=== PATIENT | female | born 1995 | race Hispanic/Latino ===

== ENCOUNTER 2017-12-20 02:35 | Inpatient (IN) | payer SELFPAY ==
[~2017-12-20] VITALS: Ht 157.5 cm; Wt 98.9 kg
[2017-12-20 03:18] LABS: APPEARANCE,URINE Clear (CLEAR); BILIRUBIN,URINE Negative (NEGATIVE); COLOR,URINE Dark Yellow (YELLOW); GLUCOSE, URINE (UA) Negative (NEGATIVE); KETONES,URINE Trace mg/dL (NEGATIVE); LEUKOCYTE ESTERASE ,URINE Small (NEGATIVE); NITRATE,URINE Negative (NEGATIVE); OCCULT BLOOD,URINE Moderate (NEGATIVE); PH,URINE 5.5 (5.0-8.0); PROTEIN,URINE Trace (NEGATIVE)
[2017-12-20 03:26] LABS: AMPHET/METH SCREEN,URINE NEGATIVE (NEGATIVE); BARBITURATE SCREEN, URINE NEGATIVE (NEGATIVE); BENZODIAZEPINES SCREEN,URINE NEGATIVE (NEGATIVE); CANNABINOID SCREEN,URINE NEGATIVE (NEGATIVE); COCAINE SCREEN,URINE NEGATIVE (NEGATIVE); OPIATE SCREEN,URINE NEGATIVE (NEGATIVE); PHENCYCLIDINE SCREEN,URINE NEGATIVE (NEGATIVE)
[2017-12-20 03:33] LABS: AMORPHOUS SEDIMENT,UR Many /LPF (None Seen); BACTERIA,URINE Few /HPF (None Seen); MUCUS,URINE Many LPF (None Seen); SQUAMOUS EPITHELIAL CELL,UR Moderate /LPF (0-2)
[2017-12-20] MEDS ORDERED: LACTATED RINGERS 1000ML 1,000 ML IV PRN (03:58)
[2017-12-20] MEDS ORDERED: MEPERIDINE-PF 50 MG/ML SYG IVP ONE (04:00)
[2017-12-20] MEDS ORDERED: OXYTOCIN-LR 20 UNITS/1000 ML 1,000 ML IV SCH (04:00)
[2017-12-20] MEDS ORDERED: AMPICILLIN 2GM+NS 100ML 100 ML IV SCH (04:30)
[2017-12-20] MEDS ORDERED: AMPICILLIN 2GM+NS 100ML 100 ML IV ONE (04:32)
[2017-12-20 04:36] LABS: HEMATOCRIT 38.3 % (36-48); MEAN CORPUSCULAR HEMOGLOBIN 30.4 pg (27.0-33.0); MEAN CORPUSCULAR HGB CONC 34.3 g/dL (32.0-36.0); MEAN CORPUSCULAR VOLUME 88.7 fL (80-100); PLATELET COUNT (AUTO) 92 K/uL (130-400); RED BLOOD CELL COUNT(AUTO) 4.31 MIL/uL (4.00-5.50); RED CELL DISTRIBUTION WIDTH 13.6 % (11.0-15.5); WHITE BLOOD COUNT (AUTO) 18.9 K/uL (4.8-10.8)
[2017-12-20] MEDS: PROMETHAZINE HCL 25 MG/ML 1ML AMPULE IM SCH ×2 (04:36→23:46)
[2017-12-20 06:44] LABS: RAPID PLASMA REAGIN NONREACTIVE (NONREACTIVE)
[2017-12-20] MEDS ORDERED: MEPERIDINE-PF 50 MG/ML SYG IVP PRN (07:00)
[2017-12-20] MEDS ORDERED: OXYTOCIN 10 USP UNITS/ML ONE ×3 (07:08→15:27)
[2017-12-20] MEDS ORDERED: AMPICILLIN 1GM+NS 50ML 50 ML IV SCH (08:30)
[2017-12-20] MEDS ORDERED: CEFAZOLIN SODIUM 1 GM VIAL ONE (10:59)
[2017-12-20] MEDS ORDERED: EPHEDRINE-NS PF 50MG/5ML SYRINGE IV ONE (13:45)
[2017-12-20] MEDS ORDERED: LACTATED RINGERS 1000ML 1,000 ML IV SCH (13:45)
[2017-12-20] MEDS ORDERED: CEFAZOLIN SODIUM 1 GM VIAL IVP PRN (13:45)
[2017-12-20] MEDS ORDERED: FENTANYL CITRATE PF 50 MCG/1 ML 2ML VIAL ONE (13:45)
[2017-12-20] MEDS ORDERED: DURAMORPH PF1 MG/ML 10ML AMP IV ONE (13:49)
[2017-12-20] MEDS ORDERED: CEFAZOLIN SODIUM 1 GM VIAL IVP ONE (14:00)
[2017-12-20] MEDS ORDERED: GLYCOPYRROLATE 0.2 MG/ML 5 ML VIAL ONE (14:08)
[2017-12-20] MEDS ORDERED: DEXAMETHASONE SOD PHOSPHATE 10MG/ML 1ML VIAL ONE (14:19)
[2017-12-20] MEDS ORDERED: OXYTOCIN 10 UNIT/1ML 10ML VIAL ONE (14:19)
[2017-12-20] MEDS ORDERED: ONDANSETRON HCL 4 MG/2 ML VIAL ONE (14:19)
[2017-12-20 16:40] VITALS: BP 120/73
[2017-12-20] MEDS ORDERED: OXYTOCIN-LR 20 UNITS/1000 ML 1,000 ML IV PRN (17:12)
[2017-12-20] MEDS ORDERED: SODIUM CHLORIDE 0.9% 10 ML VIAL IVP PRN (17:15)
[2017-12-20] MEDS ORDERED: MEPERIDINE-PF 75 MG/ML SYG IM PRN (17:15)
[2017-12-20] MEDS ORDERED: PROMETHAZINE HCL 25 MG/ML 1ML AMPULE IM PRN ×2 (17:15→18:15)
[2017-12-20] MEDS ORDERED: PNV1TABL17 PO (17:27)
[2017-12-20] MEDS ORDERED: ONDANSETRON HCL 4 MG/2 ML VIAL IVP PRN ×2 (18:15)
[2017-12-20] MEDS ORDERED: EPHEDRINE SULFATE 50 MG/ML AMPULE IVP PRN (18:15)
[2017-12-20] MEDS ORDERED: HYDROCODONE/ACETAMINOPHEN 5/325 MG TAB PO PRN ×2 (18:15)
[2017-12-20] MEDS ORDERED: METOCLOPRAMIDE 10 MG/2 ML VIAL IVP PRN (18:15)
[2017-12-20] MEDS ORDERED: NALOXONE HCL 0.4 MG/1 ML ML IVP PRN (18:15)
[2017-12-20] MEDS ORDERED: MORPHINE SULFATE 2 MG/ML 1ML SYG IVP PRN (18:15)
[2017-12-20] MEDS ORDERED: ROPIVACAINE 0.2%200ML EPIDURAL 200 ML EP SCH (18:15)
[2017-12-20] MEDS ORDERED: ONDANSETRON HCL 4 MG/2 ML 8 MG in SODIUM CHLORIDE 0.9% 50 ML IVP NR (18:15)
[2017-12-20] MEDS ORDERED: DiphenhydrAMINE HCL 50 MG/ML VIAL IVP PRN (18:15)
[2017-12-20 19:22] VITALS: BP 101/47
[2017-12-20] MEDS: DEXTROSE 5 %-0.45 % NACL 1,000 ML IV PRN (22:55)
[2017-12-20 23:20] VITALS: BP 117/60
[2017-12-21 03:29] VITALS: BP 97/59
[2017-12-21 05:13] LABS: HEMATOCRIT 29.1 % (36-48); MEAN CORPUSCULAR HEMOGLOBIN 31.4 pg (27.0-33.0); MEAN CORPUSCULAR HGB CONC 35.3 g/dL (32.0-36.0); MEAN CORPUSCULAR VOLUME 88.8 fL (80-100); PLATELET COUNT (AUTO) 58 K/uL (130-400); RED BLOOD CELL COUNT(AUTO) 3.28 MIL/uL (4.00-5.50); RED CELL DISTRIBUTION WIDTH 13.4 % (11.0-15.5); WHITE BLOOD COUNT (AUTO) 22.3 K/uL (4.8-10.8)
[2017-12-21 05:30] LABS: PLATELET MORPHOLOGY COMMENT SLIGHTLY DECREASED
[2017-12-21] MEDS: DEXTROSE 5 %-0.45 % NACL 1,000 ML IV PRN (05:36)
[2017-12-21 07:25] VITALS: BP 90/51
[2017-12-21 07:32] LABS: HEPATITIS Bs ANTIGEN SCREEN P Negative (Negative)
[2017-12-21] MEDS ORDERED: BISACODYL 10 MG SUPP.RECT RC PRN (07:45)
[2017-12-21] MEDS ORDERED: ACETAMINOPHEN-CODEINE 300/30MG TAB PO PRN (07:45)
[2017-12-21] MEDS ORDERED: DIPHENHYDRAMINE HCL 25 MG CAPSULE PO PRN (07:45)
[2017-12-21] MEDS ORDERED: MEASLES/MUMPS/RUBELLA VACCINE, LIVE 0.5 ML/VIAL SQ SCH (07:45)
[2017-12-21] MEDS: DOCUSATE SODIUM 100 MG CAP PO SCH ×2 (08:20→20:53)
[2017-12-21] MEDS: SIMETHICONE 80 MG TAB.CHEW PO PRN ×4 (08:20→20:53)
[2017-12-21] MEDS: IBUPROFEN 800 MG TAB PO SCH ×2 (08:21→17:59)
[2017-12-21] MEDS: DIPH,PERTUSS(ACELL),TET VAC/PF 0.5 ML VIAL IM SCH ×2 (08:23→17:56)
[2017-12-21 11:32] VITALS: BP 109/68
[2017-12-21 15:43] VITALS: BP 113/51
[2017-12-21 19:35] VITALS: BP 108/63
[2017-12-21 23:31] VITALS: BP 97/60
[2017-12-22] MEDS: IBUPROFEN 800 MG TAB PO SCH ×2 (02:07→08:53)
[2017-12-22 03:20] VITALS: BP 98/56
[2017-12-22 07:27] VITALS: BP 114/63
[2017-12-22] MEDS: DOCUSATE SODIUM 100 MG CAP PO SCH (08:52)
[2017-12-22] MEDS: SIMETHICONE 80 MG TAB.CHEW PO PRN (08:52)
[2017-12-22 08:57] LABS: BASOPHILS % (AUTO) 0.2 % (0.0-5.0); EOSINOPHILS % (AUTO) 1.4 % (0.0-8.0); LYMPHOCYTES % (AUTO) 16.3 % (21.0-51.0); MEAN CORPUSCULAR HEMOGLOBIN 31.3 pg (27.0-33.0); MEAN CORPUSCULAR HGB CONC 34.8 g/dL (32.0-36.0); MONOCYTES % (AUTO) 10.5 % (3.0-13.0); NEUTROPHILS % (AUTO) 71.6 % (40.0-77.0); PLATELET COUNT (AUTO) 50 K/uL (130-400); RED BLOOD CELL COUNT(AUTO) 3.34 MIL/uL (4.00-5.50); RED CELL DISTRIBUTION WIDTH 13.6 % (11.0-15.5); WHITE BLOOD COUNT (AUTO) 12.8 K/uL (4.8-10.8)
[2017-12-22] MEDS ORDERED: DOCU240C80 PO (11:32)
[2017-12-22] MEDS ORDERED: ACET1TAB12 PO (11:33)
[2017-12-22] MEDS ORDERED: MO8B PO (11:33)
[2017-12-22 11:36] VITALS: BP 112/64
[2017-12-22 15:48] VITALS: BP 120/73
== END 2017-12-22 16:20 | disposition home or self-care (01) | DRG 766 ==
LOC: EDH 02:35 → LDH 02:36 → OBSVTOIN 03:58 → WSH 16:37
PROVIDERS: ADMIT Specialist; ATTEND Specialist
PROC: 3E0234Z Introduction of Serum, Toxoid and Vaccine into Muscle, Percutaneous Approach (ICD-10-PCS; 2017-12-20)
PROC: 10D00Z1 Extraction of Products of Conception, Low, Open Approach (ICD-10-PCS; principal; 2017-12-20 14:19)
DX: O99.12 Other diseases of the blood and blood-forming organs and certain disorders involving the immune mechanism complicating childbirth (principal); D69.6 Thrombocytopenia, unspecified; O77.0 Labor and delivery complicated by meconium in amniotic fluid; O62.2 Other uterine inertia; Z37.0 Single live birth; Z3A.39 39 weeks gestation of pregnancy; O26.893 Other specified pregnancy related conditions, third trimester; Z90.710 Acquired absence of both cervix and uterus; Z23 Encounter for immunization
CPT/HCPCS: 36415; 59510; 80305; 81001; 85025; 85027; 86592; 86701; 86850; 86900; 86901; 87340; 87390; 90707; 90715; A4344; A4606; J0290; J0690; J1100; J2175; J2274; J2405; J2550; J2590; J3010; J3490; J7120

== ENCOUNTER 2023-06-26 20:09 | Emergency (ER) | payer OTHER ==
[~2023-06-26] VITALS: Ht 154.9 cm; Wt 93.0 kg
[~2023-06-26 20:09] MED LIST: ACET1TAB12 PO; DOCU240C80 PO; IBUP-1493 PO; PNV1TABL17 PO
[2023-06-26 21:15] VITALS: BP 126/79; PULSE 85; RESP 20
[2023-06-26] MEDS ORDERED: LIDOCAINE HCL 1% 20 ML VIAL ONE (22:38)
[2023-06-26] MEDS ORDERED: CEPH250T PO (23:21)
[2023-06-26] MEDS ORDERED: TETANUS/DIPHTHERIA TOXOID [ADULT] 0.5 ML VIAL IM ONE ×2 (23:23→23:30)
== END 2023-06-26 23:41 | disposition home or self-care (01) ==
LOC: EDH 20:09
DX: S51.812A Laceration without foreign body of left forearm, initial encounter (principal); Z79.899 Other long term (current) drug therapy; Z98.890 Other specified postprocedural states; W45.8XXA Other foreign body or object entering through skin, initial encounter; Y93.89 Activity, other specified; Y92.89 Other specified places as the place of occurrence of the external cause; Y99.8 Other external cause status
CPT/HCPCS: 12002; 73090; 90471; 90714

== ENCOUNTER 2023-07-04 10:00 | Emergency (ER) | payer OTHER ==
[~2023-07-04] VITALS: Ht 157.5 cm; Wt 105.2 kg
[~2023-07-04 10:00] MED LIST changes: +CEPH250T PO
[2023-07-04 10:01] VITALS: BP 116/59; PULSE 60; RESP 16; O2SAT 97
== END 2023-07-04 11:10 | disposition home or self-care (01) ==
LOC: EDH 10:00
DX: S51.812D Laceration without foreign body of left forearm, subsequent encounter (principal); Z79.899 Other long term (current) drug therapy; Z98.890 Other specified postprocedural states; X58.XXXD Exposure to other specified factors, subsequent encounter
CPT/HCPCS: 99282